=== PATIENT | male | born 1995 | race Two or more races ===

== ENCOUNTER 2017-02-14 16:29 | Emergency (ER) | payer OTHER ==
--- NOTE | 2017-02-14 18:02 | ER Document Report ---
HPI - HPI Patient complains to provider of: Knee pain Onset: Other - almost 2 months Onset/Duration: Persistent Quality of pain: Achy Pain Level: 4 Context: States that he was running while wearing a lot of care and fell injuring his right knee. Patient states that he has seen his primary doctor about this and was diagnosed with a likely sprain and was given an orthopedic referral on 2016. Patient states that he has been walking on his leg without crutches and is concerned that walking may be causing further injury to his right knee. Patient denies any new injury. Patient states he has not had any imaging done of his knee. Associated Symptoms: Other - Knee joint pain Exacerbated by: Standing, Movement, Walking Relieved by: Denies Similar symptoms previously: No Recently seen / treated by doctor: Yes - ROS ROS below otherwise negative: Yes Systems Reviewed and Negative: Yes All other systems reviewed and negative - CONSTITUTIONAL Constitutional: DENIES: Fever - NEURO Neurology: DENIES: Weakness - MUSCULOSKELETAL Musculoskeletal: REPORTS: Extremity pain - right Knee - DERM Skin Color: Normal Skin Problems: None Past Medical History - General Information source: Patient - Social History Smoking Status: Former Smoker Chew tobacco use (# tins/day): Yes Frequency of alcohol use: Occasional Drug Abuse: None Occupation: active duty Family History: Reviewed & Not Pertinent Patient has suicidal ideation: No Patient has homicidal ideation: No - Medical History Medical History: Negative Renal/ Medical History: Denies: Hx Peritoneal Dialysis Past Surgical History: Reports: Hx Oral Surgery - Immunizations Immunizations up to date: Yes Vertical Provider Document - CONSTITUTIONAL Agree With Documented VS: Yes Exam Limitations: No Limitations General Appearance: WD/WN, No Apparent Distress - INFECTION CONTROL TRAVEL OUTSIDE OF THE [place] IN LAST 30 DAYS: No - HEENT HEENT: Atraumatic, Normocephalic - NECK Neck: Normal Inspection - RESPIRATORY Respiratory: Breath Sounds Normal, No Respiratory Distress O2 Sat by Pulse Oximetry: 98 - CARDIOVASCULAR Cardiovascular: Regular Rate, Regular Rhythm Pulses: Normal: Posterior tibial - MUSCULOSKELETAL/EXTREMETIES Musculoskeletal/Extremeties: MAEW, Tender - Right knee joint tenderness to popliteal area, no joint effusion, No Edema Notes: Patient with subtle laxity with varus and valgus maneuvers. No joint effusion. Patellar tendon intact. Normal skin color and temperature overlying joint - NEURO Level of Consciousness: Awake, Alert, Appropriate Motor/Sensory: No Motor Deficit - DERM Integumentary: Warm, Dry, No Rash Course - Re-evaluation Re-evalutation: 02/14/17 19:16 Pt has a knee brace with him. 02/14/17 19:17 The patient has been informed that they may have pre-hypertension or hypertension based on a blood pressure reading in the emergency department. I recommend that patient call the primary care provider listed on their discharge instructions or a physician of their choice by this week to arrange follow-up for further evaluation of possible pre-hypertension her hypertension. - Vital Signs Vital signs: Temp Pulse Resp BP Pulse Ox 98.2 F 69 16 162/88 H 98 02/14/17 16:32 02/14/17 16:32 02/14/17 16:32 02/14/17 16:32 02/14/17 16:32 - Diagnostic Test Radiology reviewed: Image reviewed, Reports reviewed Discharge - Discharge Clinical Impression: Right knee sprain Qualifiers: Encounter type: initial encounter Involved ligament of knee: unspecified ligament Qualified Code(s): S83.91XA - Sprain of unspecified site of right knee , initial encounter Condition: Stable Disposition: HOME, SELF-CARE Instructions: Sprained Knee ([facility]), Suspected Internal Knee Injury ([facility]), Oral Narcotic Medication ([facility]), Use of Crutches ([facility]), Ice & Elevation ([facility]) Additional Instructions: Return immediately for any new or worsening symptoms Followup with your primary care provider, call tomorrow to make a followup appointment Your blood pressure was mildly elevated today, recheck with your primary doctor next week to have this reevaluated. Follow-up with orthopedic doctor as planned for further evaluation. You will likely need an MRI to further evaluate your knee pain symptoms. weight bearing as tolerated Prescriptions: Hydrocodone/Acetaminophen [Mary D 5-325 Tablet] 1 each PO Q4 PRN #15 tablet PRN Reason: Naproxen [Naprosyn 250 Nmg Tablet] 1 tab PO BID #14 tablet Forms: Return to Work
--- NOTE | 2017-02-14 18:55 | RADIOLOGY REPORT (SQ) ---
EXAM DESCRIPTION: KNEE RIGHT 4 VIEWS COMPLETED DATE/TIME: 02/14/2017 6:38 pm REASON FOR STUDY: r knee pain after fall COMPARISON: None. NUMBER OF VIEWS: Four views. TECHNIQUE: AP, lateral, and both oblique radiographic images acquired of the right knee. LIMITATIONS: None. FINDINGS: MINERALIZATION: Normal. BONES: No acute fracture or dislocation. No worrisome bone lesions. JOINT: No effusion. SOFT TISSUES: No soft tissue swelling. No radio-opaque foreign body. OTHER: No other significant finding. IMPRESSION: NO RADIOGRAPHIC EVIDENCE OF ACUTE INJURY. TECHNICAL DOCUMENTATION: JOB ID: [id number] [email or web address] All Rights Reserved
[2017-02-14 19:15] VITALS: BP 134/72
== END 2017-02-14 19:38 | disposition home or self-care (01) ==
LOC: ER 16:29
DX: S83.91XA Sprain of unspecified site of right knee, initial encounter (principal); W18.30XA Fall on same level, unspecified, initial encounter; Z87.891 Personal history of nicotine dependence
CPT/HCPCS: 99283